=== PATIENT | female | born 1965 | race Caucasian/White ===

== ENCOUNTER → 2018-06-15 | Outpatient (CLI) | payer BC ==
[~2018-06-15] VITALS: Ht 170.2 cm; Wt 118.4 kg
[~2018-06-15] MED LIST: ACCU-CHEK COMB1 EACH MC; CYMBALTA30 MG PO; GLUCOPHAGE1000 MG PO; NOVOLIN,HU100 UNITS/ SCCONT; ONE DAILY FOR1 EAC1 PO; TURMERIC500 M2 PO; VITAMIN E400 UNIT PO
== END | disposition home or self-care (01) ==
LOC: AMB 06-02 08:00
PROVIDERS: Internal Medicine Gastroenterology
DX: Z12.11 Encounter for screening for malignant neoplasm of colon (principal); K21.9 Gastro-esophageal reflux disease without esophagitis; K29.70 Gastritis, unspecified, without bleeding; E66.01 Morbid (severe) obesity due to excess calories; Z68.41 Body mass index [BMI] 40.0-44.9, adult; E10.65 Type 1 diabetes mellitus with hyperglycemia; Z96.41 Presence of insulin pump (external) (internal); G89.29 Other chronic pain; M54.5 Low back pain; E78.5 Hyperlipidemia, unspecified; F41.9 Anxiety disorder, unspecified; I10 Essential (primary) hypertension; Z87.891 Personal history of nicotine dependence; Z83.3 Family history of diabetes mellitus; Z82.49 Family history of ischemic heart disease and other diseases of the circulatory system; Z82.3 Family history of stroke
CPT/HCPCS: 82948; 88305; 88342 TC; 93005; J2250